=== PATIENT | male | born 1975 | race Caucasian/White ===

== ENCOUNTER 2017-12-22 12:10 | Emergency (ER) ==
[2017-12-22 12:16] VITALS: BP 192/138; TEMP 97.1; BMI 50.8
--- NOTE | 2017-12-22 12:23 | ED.PDOC ---
General ED Provider: Dr. CHRIS VILLATORO Chief Complaint: Fall Stated Complaint: RIGHT HIP Time Seen by Physician: 12:30 (SEEN WITH DOMINIQUE AND LATER WITH BONNIE) Mode of Arrival: Walk-In Information Source: Patient Exam Limitations: No limitations Nursing and Triage Documentation Reviewed and Agree: Yes Reviewed sepsis parameters & appropriate labs ordered?: Yes (NEGATIVE TRAUMA ) System Inflammatory Response Syndrome: Not Applicable Sepsis Protocol: For patient's 13 years and over: Temp is 96.8 and below OR 101 and greater Pulse >90 BPM Resp >20/minute Acutely Altered Mental Status Are patient's symptoms suggestive of a new infection, such as: -Pneumonia -Skin, Soft Tissue -Endocarditis -UTI -Bone, Joint Infection -Implantable Device -Acute Abdominal Infection -Wound Infection -Meningitis -Blood Stream Catheter Infection -Unknown System Inflammatory Response Syndrome: Not Applicable Musculoskeletal Complaint Exam - Hip/Pelvis Complaint/Exam Location of Pain: Reports: Right Mechanism of Injury: Reports: No known trauma Onset/Duration: 1 WEEK Symptoms Are: Still present Initial Severity: Moderate Current Severity: Moderate Location: Reports: Discrete Character: Reports: Aching, Spasmodic, Stiffness Aggravating: Reports: Movement, Weight bearing Alleviating: Reports: Rest, Position Associated Signs and Symptoms: Denies: Swelling, Redness, Bruising, Fever, Weakness, Dizziness, Syncope, Abdominal pain, Knee pain Related History: Reports: Similar episode Able to Bear Weight: Yes Septic Arthritis Risk Factors: Reports: None Related Surgical History: Reports: None Pelvis Palpation: Stable Tenderness: Present: Right Differential Diagnoses: Fracture, Sprain, Strain Review of Systems - Review Of Systems Constitutional: Reports: No symptoms Eyes: Reports: No symptoms Ears, Nose, Mouth, Throat: Reports: No symptoms Respiratory: Reports: No symptoms Cardiac: Reports: No symptoms GI: Reports: No symptoms : Reports: No symptoms Musculoskeletal: Reports: Other (RIGHT HIP PAIN) Skin: Reports: No symptoms Neurological: Reports: No symptoms Endocrine: Reports: No symptoms Hematologic/Lymphatic: Reports: No symptoms All Other Systems: Reviewed and Negative Past Medical History - Past Medical History Previously Healthy: Yes Endocrine: Reports: None Cardiovascular: Reports: None Respiratory: Reports: None Hematological: Reports: None Gastrointestinal: Reports: None Genitourinary: Reports: CKD Neuro/Psych: Reports: None Musculoskeletal: Reports: None Cancer: Reports: None - Surgical History General Surgical History: Reports: Unknown (R kidney surgical removal secondary to stones; other non abdominal surgeries) - Family History Family History: Reports: Unknown - Social History Smoking Status: Current every day smoker, Heavy tobacco smoker Hx Substance Use: No Alcohol Screening: Occasionally - Immunizations Tetanus Shot up to Date: No Physical Exam - Physical Exam Appearance: Well-appearing, No pain distress, Well-nourished Eyes: CLOTILDE, EOMI, Conjunctiva clear ENT: Ears normal, Nose normal, Oropharynx normal Respiratory: Airway patent, Breath sounds clear, Breath sounds equal, Respirations nonlabored Cardiovascular: RRR, Pulses normal, No rub, No murmur GI/: Soft, Nontender, No masses, Bowel sounds normal, No Organomegaly Musculoskeletal: Limited ROM (RIGHT HIP) Skin: Warm, Dry, Normal color Neurological: Sensation intact, Motor intact, Reflexes intact, Cranial nerves intact, Alert, Oriented Psychiatric: Affect appropriate, Mood appropriate Interpretation - Radiology Interpretation Radiology Interpretation By: Radiologist Radiology Results: No acute changes Critical Care Note - Critical Care Note Total Time (mins): 0 Course - Course Orders, Labs, Meds: Orders Category Date Time Status CT CHEST W/O CONTRAST Stat RADS 12/22/17 12:15 Ordered Vital Signs: Temp Pulse Resp BP Pulse Ox 12/22/17 12:11 97.1 F L 81 20 192/138 H 98 Departure - Departure Time of Disposition: 12:23 (EXPLAIN THAT CT IS NEGATIVE FOR ANY BREAKS OR DISLOCATION , PT MUST SEE PMD ANDREA) Disposition: HOME SELF-CARE Discharge Problem: Hip pain Qualifiers: Laterality: right Qualified Code(s): M25.551 - Pain in right hip Instructions: Hip Pain (ED), Arthralgia (ED) Condition: Good Pt referred to PMD for follow-up: Yes IPMP verified?: Yes Prescriptions: Hydrocodone/Acetaminophen [[place] 10-325 Tablet] 1 each PO Q8HR #12 tablet Allergies/Adverse Reactions: Allergies cephalexin monohydrate [From Keflex] Adverse Reaction (Verified 12/22/17 12:14) milk Adverse Reaction (Verified 12/22/17 12:14) Home Medications: Ambulatory Orders Hydrocodone/Acetaminophen [[place] 10-325 Tablet] 1 each PO Q8HR #12 tablet
--- NOTE | 2017-12-22 12:57 | CT ---
EXAM: CT THORAX HISTORY: Fall with anterior left sided chest wall pain. TECHNIQUE: CT thorax without intravenous contrast. Multiplanar images presented. Coronal and sagit janeth re-formations. COMPARISON: 05/01/2016 FINDINGS: Normal heart size. No pericardial effusion. Normal thoracic aorta. No mediastinal or hilar lymphade nopathy. No mediastinal fluid collection or gas is seen. Lungs reveal mild discoid consolidation in the lower lateral left lung likely related to atelectasis. Lungs are otherwise unremarkable. No pleural fluid or pneumothorax. The bones are intact with no evidence of fracture. There is no peripheral soft tissue hematoma. Left nephrolithiasis is noted with largest calculus at 7.3 mm. No hydronephrosis is identified. Tiny ga llstone. The spleen is identified with no evidence of injury. IMPRESSION: 1. Mild left lateral base atelectasis. No fractures, pneumothorax or peripheral soft tissue hematom a. 2. Incidental findings include left nephrolithiasis without hydronephrosis and a tiny gallstone.
[2017-12-22] MEDS ORDERED: NORCO 10-325 PO STA (13:31)
--- NOTE | 2017-12-22 14:23 | CT ---
EXAM: CT ABDOMEN AND PELVIS HISTORY: Left rib/back pain TECHNIQUE: CT abdomen and pelvis without intravenous contrast. Images were reconstructed using 3 mm section thickness. Reformations were prepared. COMPARISON: 04/22/2016 FINDINGS: Liver and spleen have no focal lesions within limits of this unenhanced exam. There is a tiny gallst one in an otherwise unremarkable gallbladder. The pancreas and adrenal glands appear normal. Right kidney has been removed. The left kidney reveals several calculi largest measuring about 7 mm inferi melissa. There may be a small 11 mm upper left renal cortical cyst. There is no hydronephrosis or marielle nephric fat stranding. There is no evidence of ureteral calculus or obstruction. Normal abdominal ao rta. Stomach is within normal limits. Normal appendix. A few distal colon diverticula are suggested. Nor mal bowel gas pattern. Urinary bladder is unremarkable. No prostate enlargement is suggested. Ther e is no ascites. Small fatty bilateral inguinal hernias without change. The bones reveal no acute abnormality. Mild discoid atelectasis in the left lung base. No pneumoperitoneum. IMPRESSION: 1. Left nephrolithiasis without hydronephrosis or evidence of ureteral obstruction. Right nephrecto my. 2. Subtle discoid opacity in the posteriolateral left lung base may represent atelectasis. Correlat e clinically for any evidence of regional mild pneumonia. 3. Bones are intact without acute fracture identified. 4. Tiny gallstone in an otherwise unremarkable gallbladder.
== END 2017-12-22 15:45 | disposition home or self-care (01) ==
LOC: ED 12:10
DX: N20.0 Calculus of kidney (principal); T14.8XXA Other injury of unspecified body region, initial encounter; W19.XXXA Unspecified fall, initial encounter; Z87.442 Personal history of urinary calculi; Z90.5 Acquired absence of kidney; F17.210 Nicotine dependence, cigarettes, uncomplicated
CPT/HCPCS: 36415; 74176; 80053; 85025; 99283

== ENCOUNTER 2018-01-01 17:30 | Emergency (ER) ==
[2018-01-01 17:40] VITALS: TEMP 97.5; BMI 51.5
[2018-01-01] MEDS ORDERED: ZESTRIL ONE (17:55)
--- NOTE | 2018-01-01 17:55 | ED.PDOC ---
General ED Provider: Dr. CHRIS VILLATORO Chief Complaint: Back Pain Stated Complaint: CHRONIC BACK PAIN /HYPERTENSION Time Seen by Physician: 17:30 Mode of Arrival: Walk-In Information Source: Patient Exam Limitations: No limitations Nursing and Triage Documentation Reviewed and Agree: Yes Reviewed sepsis parameters & appropriate labs ordered?: Yes System Inflammatory Response Syndrome: Not Applicable Sepsis Protocol: For patient's 13 years and over: Temp is 96.8 and below OR 101 and greater Pulse >90 BPM Resp >20/minute Acutely Altered Mental Status Are patient's symptoms suggestive of a new infection, such as: -Pneumonia -Skin, Soft Tissue -Endocarditis -UTI -Bone, Joint Infection -Implantable Device -Acute Abdominal Infection -Wound Infection -Meningitis -Blood Stream Catheter Infection -Unknown System Inflammatory Response Syndrome: Not Applicable Musculoskeletal Complaint Exam - Back Pain Complaint/Exam Mechanism of Injury: Reports: No known trauma Onset/Duration: CHRONIC , WORSE Review of Systems - Review Of Systems Constitutional: Reports: No symptoms Eyes: Reports: No symptoms Ears, Nose, Mouth, Throat: Reports: No symptoms Respiratory: Reports: No symptoms Cardiac: Reports: No symptoms GI: Reports: No symptoms : Reports: No symptoms Musculoskeletal: Reports: Back pain Skin: Reports: No symptoms Neurological: Reports: No symptoms Endocrine: Reports: No symptoms Hematologic/Lymphatic: Reports: No symptoms All Other Systems: Reviewed and Negative Past Medical History - Past Medical History Previously Healthy: Yes Endocrine: Reports: None Cardiovascular: Reports: None Respiratory: Reports: None Hematological: Reports: None Gastrointestinal: Reports: None Genitourinary: Reports: CKD Neuro/Psych: Reports: None Musculoskeletal: Reports: None Cancer: Reports: None - Surgical History General Surgical History: Reports: Unknown (R kidney surgical removal secondary to stones; other non abdominal surgeries) - Family History Family History: Reports: Unknown - Social History Smoking Status: Current every day smoker, Heavy tobacco smoker Hx Substance Use: No Alcohol Screening: Occasionally Physical Exam - Physical Exam Appearance: Well-appearing, No pain distress, Well-nourished Eyes: CLOTILDE, EOMI, Conjunctiva clear ENT: Ears normal, Nose normal, Oropharynx normal Respiratory: Airway patent, Breath sounds clear, Breath sounds equal, Respirations nonlabored Cardiovascular: RRR, Pulses normal, No rub, No murmur GI/: Soft, Nontender, No masses, Bowel sounds normal, No Organomegaly Musculoskeletal: Normal strength, ROM intact, No edema, No calf tenderness Skin: Warm, Dry, Normal color Neurological: Sensation intact, Motor intact, Reflexes intact, Cranial nerves intact, Alert, Oriented Psychiatric: Affect appropriate, Mood appropriate Critical Care Note - Critical Care Note Total Time (mins): 0 Course - Course Vital Signs: Temp Pulse Resp BP Pulse Ox 01/01/18 17:31 97.5 F L 70 16 206/114 H 98 Departure - Departure Time of Disposition: 17:56 Disposition: HOME SELF-CARE Discharge Problem: Backache, Family history of nephrolithiasis Hypertension Qualifiers: Hypertension type: unspecified Qualified Code(s): I10 - Essential (primary) hypertension Instructions: Hypertension (ED), Renal Colic (ED), Kidney Stones (ED), Flank Pain (ED) Condition: Good Pt referred to PMD for follow-up: Yes IPMP verified?: No Additional Instructions: Please call your Family Physician as soon as possible to schedule a follow-up appointment. Allergies/Adverse Reactions: Allergies cephalexin monohydrate [From Keflex] Adverse Reaction (Verified 01/01/18 17:34) milk Adverse Reaction (Verified 01/01/18 17:34) Home Medications: Ambulatory Orders 1 [No Reported Medications] 01/01/18
[2018-01-01] MEDS ORDERED: ZESTRIL PO STA (17:59)
[2018-01-01 18:56] VITALS: BP 166/103
== END 2018-01-01 19:00 | disposition left against medical advice (07) ==
LOC: ED 17:30
DX: M54.9 Dorsalgia, unspecified (principal); G89.29 Other chronic pain; I10 Essential (primary) hypertension; N18.9 Chronic kidney disease, unspecified; Z87.442 Personal history of urinary calculi; Z90.5 Acquired absence of kidney; F17.210 Nicotine dependence, cigarettes, uncomplicated
CPT/HCPCS: 99284

== ENCOUNTER 2019-01-08 13:32 | Outpatient (CLI) | END 2019-01-08 13:33 | disposition home or self-care (01) | LOC: RHC-LAB 13:32 → FCC-LAB 13:33 | PROVIDERS: ATTEND Nurse Practitioner Family | DX: E78.5 Hyperlipidemia, unspecified (principal); I10 Essential (primary) hypertension; E66.9 Obesity, unspecified; B18.2 Chronic viral hepatitis C; R60.9 Edema, unspecified; N18.9 Chronic kidney disease, unspecified | CPT/HCPCS: 36415; 80053; 80061; 83036; 85025 ==

== ENCOUNTER 2019-01-31 14:19 | Outpatient (CLI) | END 2019-01-31 14:20 | disposition home or self-care (01) | LOC: RHC-LAB 14:19 | PROVIDERS: ATTEND Nurse Practitioner Family | DX: M79.671 Pain in right foot (principal); M79.672 Pain in left foot; R79.89 Other specified abnormal findings of blood chemistry | CPT/HCPCS: 36415; 80048; 84550 ==

== ENCOUNTER 2019-02-15 19:26 | Emergency (ER) ==
[2019-02-15 19:33] VITALS: BP 104/65; TEMP 96.2; BMI 45.9
[2019-02-15] MEDS ORDERED: MORPHINE 2 MG/ML SYRINGE IM STA (19:37)
[2019-02-15] MEDS ORDERED: ZOFRAN 4 MG/2 ML IM STA (19:38)
--- NOTE | 2019-02-15 20:42 | CT ---
Exam: CT of the abdomen and pelvis without contrast History: Abdominal pain Technique: [address] of the abdomen and pelvis without intravascular contrast FINDINGS: The lung bases are clear. No significant liver abnormality. The adrenals, pancreas and s pleen are unremarkable. The stomach and hiatus are unremarkable.Cholelithiasis without gallbladder d istension or surrounding inflammation. Surgically absent right kidney. Nonobstructing calcification s in the left kidney. There is no hydronephrosis or hydroureter. The appendix is normal. Bowel loo ps demonstrate normal caliber. No inflamatory change seen in the mesentery or retroperitoneum. Vasc ular structures appear normal by noncontrast CT. Pelvic genitourinary structures appear normal. Pelvic bowel loops are unremarkable. No inflammatory change in the pelvic fat. No acute abnormality of the abdominal or pelvic skeleton. Impression: 1. No inflammatory process, bowel or urinary obstruction is seen. 2. Cholelithiasis without CT evidence of cholecystitis 3. Surgically absent right kidney 4. Multiple nonobstructing nephrolithiasis on the left
--- NOTE | 2019-02-15 20:51 | ED.PDOC ---
General ED Provider: Dr. CLARY SALES-ER Chief Complaint: Abdominal Pain Stated Complaint: im hurting Time Seen by Physician: 20:48 Mode of Arrival: Walk-In Information Source: Patient Exam Limitations: No limitations Primary Care Provider: SCARLET DOOLEY Nursing and Triage Documentation Reviewed and Agree: Yes Does patient meet sepsis criteria?: No System Inflammatory Response Syndrome: Not Applicable Sepsis Protocol: For patient's 13 years and over: Temp is 96.8 and below OR 101 and greater Pulse >90 BPM Resp >20/minute Acutely Altered Mental Status Are patient's symptoms suggestive of a new infection, such as: -Pneumonia -Skin, Soft Tissue -Endocarditis -UTI -Bone, Joint Infection -Implantable Device -Acute Abdominal Infection -Wound Infection -Meningitis -Blood Stream Catheter Infection -Unknown GI Complaint Exam - Abdominal Pain Complaint/Exam Onset: Gradual Duration: several hours Symptoms Are: Still present Timing: Constant Initial Severity: Mild Current Severity: Mild Location of Pain: Diffuse Character: Reports: Dull, Aching Associated Signs and Symptoms: Denies: Diaphoresis, Fever, Cough, Chest pain, Dizziness, Back pain, Constipation, Blood in stool, Dysuria, Urinary frequency, Decreased urine output, Decreased appetite, Discharge, Nausea, Vomiting, Diarrhea, Decreased activity Abdominal Findings: Present: None Quality Indicator For Non-Traumatic Chest Pain/Syncope: EKG Performed Review of Systems - Review Of Systems Constitutional: Reports: No symptoms Eyes: Reports: No symptoms Ears, Nose, Mouth, Throat: Reports: No symptoms Respiratory: Reports: No symptoms Cardiac: Reports: No symptoms GI: Reports: Abdominal pain : Reports: No symptoms Musculoskeletal: Reports: No symptoms Skin: Reports: No symptoms Neurological: Reports: No symptoms Endocrine: Reports: No symptoms Hematologic/Lymphatic: Reports: No symptoms All Other Systems: Reviewed and Negative Past Medical History - Past Medical History Previously Healthy: Yes Endocrine: Reports: None Cardiovascular: Reports: None Respiratory: Reports: None Hematological: Reports: None Gastrointestinal: Reports: None Genitourinary: Reports: CKD Neuro/Psych: Reports: None Musculoskeletal: Reports: None Cancer: Reports: None - Surgical History General Surgical History: Reports: Unknown (R kidney surgical removal secondary to stones; other non abdominal surgeries) - Family History Family History: Reports: Unknown - Social History Smoking Status: Current every day smoker, Heavy tobacco smoker Hx Substance Use: No Alcohol Screening: Occasionally - Immunizations Tetanus Shot up to Date: Yes Physical Exam - Physical Exam Appearance: Well-appearing Eyes: CLOTILDE, EOMI, Conjunctiva clear ENT: Ears normal, Nose normal, Oropharynx normal Neck: Supple Respiratory: Airway patent, Breath sounds clear, Breath sounds equal, Respirations nonlabored Cardiovascular: RRR, Pulses normal, No rub, No murmur GI/: Soft, Nontender, No masses, Bowel sounds normal, No Organomegaly Musculoskeletal: Normal strength, ROM intact, No edema, No calf tenderness Skin: Warm, Dry, Normal color Neurological: Sensation intact, Motor intact, Reflexes intact, Cranial nerves intact, Alert, Oriented Psychiatric: Affect appropriate, Mood appropriate Interpretation - Radiology Interpretation Radiology Interpretation By: Radiologist Radiology Results: Positive Exam Interpreted: CT Scan - EKG Interpretation Time of EKG #1: 20:50 Rate: Normal Rhythm: Sinus Ectopy: None [place]: NL ST Segment: Normal Interpretation: nsr Critical Care Note - Critical Care Note Total Time (mins): 0 Course - Course Hematology/Chemistry: 02/15/19 19:47 02/15/19 19:47 Orders, Labs, Meds: Lab Review 02/15/19 02/15/19 02/15/19 19:47 19:47 19:47 WBC 19.81 H RBC 5.02 Hgb 14.3 Hct 42.5 MCV 84.7 MCH 28.5 MCHC 33.6 RDW Coeff of Andrea 14.9 H Plt Count 227 Immature Gran % (Auto) 0.5 Neut % (Auto) 83.6 Lymph % (Auto) 9.2 L [place] % (Auto) 6.6 Eos % (Auto) 0.0 Baso % (Auto) 0.1 Immature Gran # (Auto) 0.1 Neut # (Auto) 16.6 H Lymph # (Auto) 1.8 [place] # (Auto) 1.3 Eos # (Auto) 0.0 Baso # (Auto) 0.0 ESR 44 H Sodium 138.9 Potassium 4.82 Chloride 105.1 Carbon Dioxide 10.9 L Anion Gap 27.72 BUN 104.9 H* Creatinine 10.42 H* Estimated GFR (MDRD) 5.00 BUN/Creatinine Ratio 10.06 Glucose 116.4 H Calcium 8.93 Total Bilirubin 1.32 H AST 28.0 ALT 20.6 Alkaline Phosphatase 127.1 H Total Creatine Kinase 202.4 H CK-MB (CK-2) 5.780 H* CK-MB (CK-2) % 2.8500 Troponin I < 0.012 Total Protein 9.86 H Albumin 4.83 Globulin 5.03 Albumin/Globulin Ratio 0.96 Amylase 106.7 Lipase 222.3 Orders Category Date Time Status EKG-(ED ONLY) Stat CARDIO 02/15/19 19:36 Completed Bladder Scan [ED BLADDER SCAN] .ONCE EMERGENCY 02/15/19 19:57 Active IV [ED IV/MEDIPORT/POWERPORT] .ONCE EMERGENCY 02/15/19 20:15 Active IV [ED IV/MEDIPORT/POWERPORT] .ONCE EMERGENCY 02/15/19 20:17 Active AMYLASE Stat LAB 02/15/19 19:47 Completed CBC W/ AUTO DIFF Stat LAB 02/15/19 19:47 Completed COMPREHENSIVE METABOLIC PANEL Stat LAB 02/15/19 19:47 Completed CREATINE KINASE Stat LAB 02/15/19 19:47 Completed ESR Stat LAB 02/15/19 19:47 Completed LIPASE Stat LAB 02/15/19 19:47 Completed TROPONIN I Stat LAB 02/15/19 19:47 Completed URINALYSIS C & S IF INDICATED Stat LAB 02/15/19 19:36 Uncollected 0.9 % Sodium Chloride [Saline Flush] MEDS 02/15/19 20:15 Ordered 1 syr IVF PRN PRN 0.9 % Sodium Chloride [Saline Flush] MEDS 02/15/19 20:17 Ordered 1 syr IVF PRN PRN Morphine Sulfate [Morphine 2 mg/ml Syringe] MEDS 02/15/19 19:37 Discontinued 2 mg IM ONCE STA Ondansetron HCl/Pf [Zofran 4 mg/2 ml] MEDS 02/15/19 19:38 Discontinued 4 mg IM ONCE STA CT ABDOMEN/PELVIS WO CONTRAST Stat RADS 02/15/19 19:37 Completed Medications Generic Name Dose Route Start Last Admin Trade Name Freq PRN Reason Stop Dose Admin Sodium Chloride 1 syr 02/15/19 20:15 Saline Flush IVF PRN PRN To flush IV Sodium Chloride 1 syr 02/15/19 20:17 Saline Flush IVF PRN PRN To flush IV Discontinued Medications Generic Name Dose Route Start Last Admin Trade Name Freq PRN Reason Stop Dose Admin Morphine Sulfate 2 mg 02/15/19 19:37 02/15/19 19:59 Morphine 2 Mg/Ml Syringe IM 02/15/19 19:38 2 mg ONCE STA Administration Ondansetron HCl 4 mg 02/15/19 19:38 02/15/19 20:00 Zofran 4 Mg/2 Ml IM 02/15/19 19:39 4 mg ONCE STA Administration Vital Signs: Temp Pulse Resp BP Pulse Ox 02/15/19 19:27 96.2 F L 79 16 104/65 98 Departure - Departure Time of Disposition: 20:50 Disposition: TSF SHORT-TRM HOSP Discharge Problem: Acute renal failure Qualifiers: Acute renal failure type: unspecified Qualified Code(s): N17.9 - Acute kidney failure, unspecified Instructions: End Stage Kidney Disease (ED) Condition: Good Pt referred to PMD for follow-up: Yes IPMP verified?: No Allergies/Adverse Reactions: Allergies cephalexin monohydrate [From Keflex] Adverse Reaction (Verified 01/01/18 17:34) milk Adverse Reaction (Verified 01/01/18 17:34) Home Medications: Ambulatory Orders 1 [No Reported Medications] 01/01/18 Aspirin [Low Dose Aspirin Ec] 81 mg PO DAILY 01/31/19 Transfer Form Completed: Yes Disposition Discussed With: Patient, Family
== END 2019-02-15 21:20 | disposition short-term general hospital (02) ==
LOC: ED 19:26
DX: N17.9 Acute kidney failure, unspecified (principal); R10.84 Generalized abdominal pain; N18.9 Chronic kidney disease, unspecified; F17.210 Nicotine dependence, cigarettes, uncomplicated; Z87.442 Personal history of urinary calculi
CPT/HCPCS: 36415; 80053; 82150; 82550; 82553; 83690; 84484; 85025; 85651; 93005; 93010; 96372; 99285

== ENCOUNTER 2019-02-15 21:21 | Outpatient (CLI) ==
[2019-02-15 19:33] VITALS: BMI 45.9
== END 2019-02-15 21:45 | disposition short-term general hospital (02) ==
LOC: AMBL 21:21
PROVIDERS: ATTEND Family Medicine
DX: R10.9 Unspecified abdominal pain (principal); N17.9 Acute kidney failure, unspecified

== ENCOUNTER 2019-04-11 14:58 | Outpatient (CLI) | END 2019-04-11 14:59 | disposition home or self-care (01) | LOC: RHC-LAB 14:58 → FCC-LAB 14:59 | PROVIDERS: ATTEND Nurse Practitioner Family | DX: B18.2 Chronic viral hepatitis C (principal); N18.9 Chronic kidney disease, unspecified; K80.00 Calculus of gallbladder with acute cholecystitis without obstruction | CPT/HCPCS: 36415; 80053; 82248; 85025 ==

== ENCOUNTER 2019-05-02 09:31 | Emergency (ER) ==
[2019-05-02 09:40] VITALS: BP 126/80; TEMP 97.2; BMI 44.4
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
[2019-05-02] MEDS: LIDOCAINE HCL 1% SDV SUBCUT STA (10:55)
[2019-05-02] MEDS ORDERED: BOOSTRIX IM ONE (10:57)
[2019-05-02] MEDS: BOOSTRIX IM ONE (10:59)
== END 2019-05-02 11:28 | disposition home or self-care (01) ==
LOC: ED 09:31
DX: S61.012A Laceration without foreign body of left thumb without damage to nail, initial encounter (principal); W26.0XXA Contact with knife, initial encounter; F17.210 Nicotine dependence, cigarettes, uncomplicated
CPT/HCPCS: 90471; 90715; 99283